=== PATIENT | male | born 1990 | race Hispanic/Latino ===

== ENCOUNTER 2017-07-15 21:22 | Emergency (ER) | payer OTHER ==
[2017-07-15 21:46] VITALS: BP 130/64; PULSE 80; RESP 18; TEMP 97.8; O2SAT 99
--- NOTE | 2017-07-15 21:59 | ED PDOC ---
HPI: Skin/Bite Injury Time Seen by Provider: 07/15/17 21:52 Chief Complaint (Nursing): Bite Chief Complaint (Provider): Dog Bite History Per: Patient History/Exam Limitations: no limitations Onset/Duration Of Symptoms: Mins Current Symptoms Are (Timing): Still Present Additional Complaint(s): Mario Sales is a 26 year old male that presents to the ED after he was bit in the left nostril and top lip by his friend's dog. Patient is actively bleeding. Tetanus UTD. - Animal Bite Description Of The Attack: Playing With Animal Description Of The Animal: Neighbor's Pet Animal Appears: Well Animal's Immunization Status: UTD Animal Control Notified: No Past Medical History Reviewed: Historical Data, Nursing Documentation, Vital Signs Vital Signs: Last Vital Signs Temp 97.8 F 07/15/17 21:43 Pulse 80 07/15/17 21:43 Resp 18 07/15/17 21:43 BP 130/64 07/15/17 21:43 Pulse Ox 99 07/15/17 23:56 - Medical History PMH: No Chronic Diseases - Family History Family History: States: Unknown Family Hx - Immunization History Hx Tetanus Toxoid Vaccination: Yes - Home Medications Home Medications: Ambulatory Orders Medication Instructions Recorded Amoxicillin/Clavulanate [Augmentin 1 tab PO BID #14 tab 07/16/17 875 MG-125 MG] - Allergies Allergies/Adverse Reactions: Allergies Allergy/AdvReac Type Severity Reaction Status Date / Time No Known Allergies Allergy Verified 07/15/17 21:43 Review of Systems ROS Statement: Except As Marked, All Systems Reviewed And Found Negative Constitutional: Negative for: Fever, Chills ENT: Positive for: Mouth Pain, Other (puncture wounds to left nostril and top lip) Physical Exam - Reviewed Nursing Documentation Reviewed: Yes Vital Signs Reviewed: Yes - Physical Exam Appears: Positive for: Non-toxic, No Acute Distress Head Exam: Positive for: ATRAUMATIC, NORMOCEPHALIC Skin: Positive for: Normal Color, Warm Eye Exam: Positive for: Normal appearance, EOMI, PERRL ENT: Positive for: Other (Laceration to top lip, is through and through. Injury to inner mucosa of lip, outer portion is jagged, uneven, and laceration is near nasolabial fold. Active bleeding. ) Neurologic/Psych: Positive for: Alert, Oriented. Negative for: Motor/Sensory Deficits - ECG O2 Sat by Pulse Oximetry: 99 (RA) Pulse Ox Interpretation: Normal Medical Decision Making Medical Decision Making: Impression: Puncture Wound as a result of Dog Bite Plan: * Discussed with patient the option of obtaining plastic surgery to repair puncture wounds. Will give patient Rx for antibiotics. * 22:11 * plastics-MD Segundo contacted will see pt in 1hr. * PT given augmentin 875mg PO tab * 23:59-MD Segundo here to repair injury Scribe Attestation: Documented by Lexi Pettit, acting as a scribe for Jeni Madison PA-C. Provider Scribe Attestation: All medical record entries made by the Scribe were at my direction and personally dictated by me. I have reviewed the chart and agree that the record accurately reflects my personal performance of the history, physical exam, medical decision making, and the department course for this patient. I have also personally directed, reviewed, and agree with the discharge instructions and disposition. Disposition - Clinical Impression Clinical Impression: Animal bite wound - Patient ED Disposition Is Patient to be Admitted: Transfer of Care Counseled Patient/Family Regarding: Diagnosis, Need For Followup, Rx Given - Disposition Disposition: Routine/Home Disposition Time: 00:00 Condition: STABLE Prescriptions: Amoxicillin/Clavulanate [Augmentin 875 MG-125 MG] 1 tab PO BID #14 tab Instructions: Animal Bite (ED), Laceration (ED), Care For Your Stitches (ED) Forms: [employer] ([place]) Patient Signed Over To: Jatin Mata Handoff Comments: laceration repair
[2017-07-15] MEDS ORDERED: Amoxicillin-Clav 875-125 mg Tab PO STA (22:12)
[2017-07-15] MEDS ORDERED: Amoxicillin-Clav 875-125 mg Tab PO ONE (22:54)
[2017-07-16] MEDS ORDERED: Lidocaine 2% w Epi 1:100,000 Inj IJ ONE (00:30)
--- NOTE | 2017-07-16 00:34 | ED PDOC ---
- ECG O2 Sat by Pulse Oximetry: 99 (RA) Medical Decision Making Medical Decision Making: Case endorsed to life insurance underwriter from MICHAEL Madison at 0000 pending plastics consult Upon my eval, [id number]: Dr. Raymond at bedside for laceration repair. Disposition - Clinical Impression Clinical Impression: Animal bite wound - POA Present On Arrival: None - Disposition Disposition: Routine/Home Disposition Time: 01:07 Condition: STABLE Prescriptions: Amoxicillin/Clavulanate [Augmentin 875 MG-125 MG] 1 tab PO BID #14 tab Instructions: Animal Bite (ED), Care For Your Stitches (ED), Laceration (ED) Forms: [facility] (Korean)
== END 2017-07-16 01:05 | disposition home or self-care (01) ==
LOC: H.ER 21:22
DX: S01.531A Puncture wound without foreign body of lip, initial encounter (principal); W54.0XXA Bitten by dog, initial encounter